=== PATIENT | male | born 1955 | race Caucasian/White ===

== ENCOUNTER 2017-02-10 07:49 | Day surgery (SDC) | payer OTHER ==
[~2017-02-10 07:49] MED LIST: ASP81TEC PO; Lidocaine Topical 2% 30 mL Jelly ONE; PREVACID PO
[2017-02-10] MEDS ORDERED: DILT180C83 PO (10:38)
[2017-02-10] MEDS ORDERED: OMEP20CA11 PO (10:38)
== END 2017-02-10 23:59 | disposition home or self-care (01) ==
LOC: END 07:49
PROVIDERS: ATTEND Surgery
DX: K22.0 Achalasia of cardia (principal); R13.10 Dysphagia, unspecified

== ENCOUNTER 2017-02-12 13:50 | Day surgery (SDC) | payer OTHER ==
[~2017-02-12] VITALS: Ht 180.3 cm; Wt 72.6 kg
[~2017-02-12 13:50] MED LIST changes: -ASP81TEC PO; +DILT180C83 PO; -Lidocaine Topical 2% 30 mL Jelly ONE; +OMEP20CA11 PO; -PREVACID PO
[2017-02-12 14:18] VITALS: BP 124/79; PULSE 71; RESP 16; O2SAT 99
[2017-02-12] MEDS ORDERED: fentaNYL-PF 50 mCg/mL 2 mL Inj ONE (15:04)
[2017-02-12] MEDS ORDERED: fentaNYL-PF 50 mCg/mL 2 mL Inj IVPUSH PRN (15:10)
[2017-02-12 15:58] VITALS: BP 99/66; PULSE 68; RESP 15; O2SAT 97
[2017-02-12 16:06] VITALS: BP 101/67; PULSE 68; RESP 15; O2SAT 96
[2017-02-12 16:16] VITALS: BP 105/65; PULSE 67; RESP 15; O2SAT 98
--- NOTE | 2017-02-13 01:54 | ENDO ---
[address] [address] ENDOSCOPY PROCEDURE PATIENT: LONG GRAYSON : 1955 MR#: [id number] ADMIT: 02/12/2017 JOB ID: [id number] DATE OF PROCEDURE: 02/12/2017 PREPROCEDURE DIAGNOSIS: Dysphagia. POSTPROCEDURE DIAGNOSIS: Dysphagia. PROCEDURE: Upper endoscopy with balloon dilation. SURGEON: Kristin Huynh MD. INSTRUMENT: Olympus [id number]. MEDICATIONS: 1. Versed 7 mg. 2. Fentanyl 175 mcg. HISTORY OF PRESENT ILLNESS: This is a 61-year-old man with a history of dysphagia and regurgitation. He was scheduled for upper GI fluoroscopy, manometry, and upper endoscopy with possible dilation. Manometry and upper GI fluoroscopy were suggestive of, but not diagnostic of, achalasia; he has aperistalsis and poor, but not absent, relaxation of the lower esophageal sphincter. FINDINGS: Tight GE junction without sign for tumor or mass. TTS dilation with balloon was performed to 15, 16.5, 18, and 20 mm. DESCRIPTION OF PROCEDURE: The patient was brought to the endoscopy suite and placed in the left lateral decubitus position. Moderate sedation was induced. A bite block was placed. The endoscope was advanced into the esophagus, stomach, and third portion of the duodenum. The mucosa within the esophagus, stomach and duodenum was all grossly normal. His stomach appeared somewhat twisted, however, there was no hiatal hernia. The GE junction was tight and a small degree of resistance was encountered in order to advance the endoscope. Dilation was performed as noted above. The Efrzulb-Cyc-Qjhvl balloon was used at 15 mm for 60 seconds which caused no mucosal breaks; 16.5 mm for 60 seconds which cause no mucosal breaks; 18 mm for 60 seconds which caused no mucosal breaks; and finally to 20 mm which also showed no mucosal breaks. The esophagus and stomach were carefully inspected one last time and retroflexed view revealed a Hill grade II flap valve. The endoscope was withdrawn. The patient tolerated the procedure well. COMPLICATIONS: None. ESTIMATED BLOOD LOSS: None. SPECIMENS: None.
== END 2017-02-12 23:59 | disposition home or self-care (01) ==
LOC: END 13:50
PROVIDERS: ATTEND Surgery
DX: R13.10 Dysphagia, unspecified (principal); I10 Essential (primary) hypertension; K21.9 Gastro-esophageal reflux disease without esophagitis; R00.2 Palpitations; F10.21 Alcohol dependence, in remission; Z86.14 Personal history of Methicillin resistant Staphylococcus aureus infection
CPT/HCPCS: 43249; 99153; G0500; J2250; J3010; J7030